=== PATIENT | male | born 1995 | race Caucasian/White ===

== ENCOUNTER 2016-10-07 23:08 | Emergency (ER) | payer BC, MEDICAID ==
[~2016-10-07] VITALS: Ht 193 cm; Wt 68.0 kg
[~2016-10-07 23:08] MED LIST: AMOX875 PO; C-PHSYP6 PO; IBUP800T23 PO; Z.0.NO CURRENT MEDS
[2016-10-07 23:11] VITALS: BP 115/69; PULSE 98; RESP 16; TEMP 98.9; O2SAT 100
[2016-10-07] MEDS ORDERED: AMOX500T PO (23:52)
--- NOTE | 2016-10-07 23:52 | PD ---
HPI Chief Complaint: ENT Complaint Time Seen by Provider: 23:44 Travel History International Travel<30 days: No Contact w/Intl Traveler<30days: No Traveled to known affect area: No History of Present Illness HPI 21-year-old male presents emergency Department with complaints of sore throat 2 days. He has had a subjective fever and chill at home, sore throat, congestion and general malaise. He denies any headache, ear pain, nausea, vomiting, diarrhea or abdominal pain. No dysuria or frequency. Symptoms are moderate. Worse with swallowing. PFSH Past Medical History Medical History: Denies Significant Hx Developmental Delay: No Diminished Hearing: No Immunizations Current: Yes Tetanus Vaccination: < 5 Years Past Surgical History Surgical History: No Previous Surgery Social History Alcohol Use: Yes Tobacco Use: Yes Substance Use: No Allergies-Medications (Allergen,Severity, Reaction): Coded Allergies: No Known Allergies (Verified , 10/07/16) Reported Meds & Prescriptions Reported Meds & Active Scripts Active Ibuprofen 800 Mg Tab 800 Mg PO Q6H PRN Rondec Dm Syrup (12.5MG/4MG/15MG Per 5ML) (Phenylephr/Chlorphenir/Dextrometh) Syrp 5 Ml PO Q6HPRN Amoxil (Amoxicillin) 875 Mg Tab 875 Mg PO BID Reported No Current Meds (Miscellaneous Medication) Misc Review of Systems Except as stated in HPI: all other systems reviewed are Neg Physical Exam Narrative GENERAL: Well-developed, well-nourished in no acute distress. Nontoxic appearing. HEAD: Normocephalic, atraumatic. EYES: Pupils equal round and reactive. Extraocular motions intact. No scleral icterus. No injection or drainage. ENT: TMs clear without erythema. The external auditory canals clear. Nose: clear . Posterior pharynx is erythematous and moist. Positive tonsillar edema with a small amount of white exudate. Uvula midline. Airway patent. NECK: Trachea midline.Supple, nontender, moves head freely. No central bony tenderness or spasm. Positive enlarged tonsillar and cervical adenopathy CARDIOVASCULAR: Regular rate and rhythm without murmurs, gallops, or rubs. RESPIRATORY: Clear to auscultation. Breath sounds equal bilaterally. No wheezes , rales, or rhonchi. GASTROINTESTINAL: Abdomen soft, non-tender, nondistended. No hepato-splenomegaly , or palpable masses. No guarding. EXTREMITIES: No clubbing, cyanosis, or edema. No joint tenderness, effusion, or edema noted. BACK: Nontender without deformity or crepitance. No flank tenderness. Data Data Last Documented VS Vital Signs Date Time Temp Pulse Resp B/P Pulse Ox O2 Delivery O2 Flow Rate FiO2 10/07/16 23:11 98.9 98 16 115/69 100 MDM Medical Decision Making Medical Screen Exam Complete: Yes Emergency Medical Condition: Yes Medical Record Reviewed: Yes Differential Diagnosis MDM: High Differential diagnoses: Strep throat, viral pharyngitis, mono, peritonsillar abscess, retropharyngeal abscess, Yung's angina Narrative Course Patient's given Amoxil 1 g by mouth and Motrin 800 mg by mouth. This is acute pharyngitis Diagnosis Primary Impression: Acute pharyngitis Patient Instructions: General Instructions Departure Forms: Tests/Procedures, Work Release Enter return to work date: Oct 07, 2016 Special Instructions: No work 2 days. Med/Other Pt SpecificInfo: Prescription(s) given Disposition: 01 DISCHARGE HOME Condition: Stable Alden Lea Oct 07, 2016 23:52
[2016-10-08] MEDS ORDERED: IBUPROFEN 800 MG TAB PO ONE (00:30)
[2016-10-08] MEDS ORDERED: AMOXICILLIN (TRIHYDRATE) 500 MG CAP PO ONE (00:30)
== END 2016-10-08 00:46 | disposition home or self-care (01) ==
LOC: NEPB 23:08
DX: J02.9 Acute pharyngitis, unspecified (principal)
CPT/HCPCS: 99282